=== PATIENT | female | born 1955 | race Caucasian/White ===

== ENCOUNTER 2017-06-21 11:12 | Emergency (ER) | payer MEDICARE ==
[~2017-06-21] VITALS: Ht 152.4 cm; Wt 62.0 kg
[~2017-06-21 11:12] MED LIST: ADVAIR DISK2 IN; BAYER LOW81 MG OR; CIPRO500 MG PO; CITALOPRAM20 MG PO; GARLIC OIL1000 M1 OR; HUMALOG; HUMALOG KW75 MG/25 K SC; LEVOTHROID25 MCG PO; MEDROL4 M1 PO; METFORMIN1000 MG PO; METOPROL TAR50 MG PO; NAPROSYN500 MG PO; NOVOLIN 70/30 SC; PRAVASTATIN10 MG PO; PROAIR HFA IN
[2017-06-21 12:19] LABS: HEMATOCRIT 50.2 % (37.0-47.0); MEAN CELL VOLUME 84.8 fL CALC (80.0-100.0); RED BLOOD COUNT 5.92 mill/uL (4.20-5.60)
[2017-06-21 12:20] LABS: MEAN CORPUSCULAR HGB CONC 31.9 g/L CALC (32.0-36.0); RED CELL DISTRI WIDTH 14.2 % (11.5-15.5)
[2017-06-21 12:21] LABS: NEUT# 6.27 thou/uL (2.00-7.15)
[2017-06-21 12:30] VITALS: BP 233/116
[2017-06-21 12:34] LABS: ALBUMIN 4.7 g/dL (3.2-5.0); ALKALINE PHOSPHATASE 119 u/l (38-126); ANION GAP 18 (6-22 (CALC)); BILIRUBIN, TOTAL 0.6 mg/dL (0.0-1.4); BUN 17 mg/dL (8-23); BUN/CREATININE RATIO 19 (12-20 (CALC)); CALCIUM 9.4 mg/dL (8.4-10.2); CARBON DIOXIDE 26 mmol/l (22-30); CHLORIDE 102 mmol/l (95-108); CREATININE 0.9 mg/dL (0.5-1.0); GFR > 60 ML/MIN (>=60 (CALC)); GFR FOR AFR.AMER. > 60 ML/MIN (>=60 (CALC)); GLUCOSE 346 mg/dL (82-115); POTASSIUM 4.4 mmol/l (3.5-5.1); SGOT/AST 27 u/l (9-36); SGPT/ALT 35 u/l (11-66); SODIUM 142 mmol/l (137-146); TOTAL PROTEIN 8.4 g/dL (6.3-8.2)
[2017-06-21 12:44] LABS: MYOGLOBIN 46 ng/mL (0 - 62)
== END 2017-06-21 12:30 | disposition short-term general hospital (02) ==
LOC: ED 11:12
PROVIDERS: Emergency Medicine
DX: I21.09 ST elevation (STEMI) myocardial infarction involving other coronary artery of anterior wall (principal); I25.810 Atherosclerosis of coronary artery bypass graft(s) without angina pectoris; I10 Essential (primary) hypertension; Z95.1 Presence of aortocoronary bypass graft; R06.02 Shortness of breath; R07.9 Chest pain, unspecified; M79.602 Pain in left arm

== ENCOUNTER 2018-10-03 10:39 | Inpatient (IN) | payer MEDICARE ==
[~2018-10-03] VITALS: Ht 152.4 cm; Wt 65.8 kg
[2018-10-03] VITALS (8 sets, daily range): BP systolic 140–175; BP diastolic 60–93
[~2018-10-03 10:39] MED LIST changes: +BAYER ASPIRIN E81 MG PO; -BAYER LOW81 MG OR; +LANTUS SOL100 UNIT/M SC; +LANTUS100 UNIT/M SC
[2018-10-03 11:29] LABS: HEMATOCRIT 49.3 % (37.0-47.0); HEMOGLOBIN 16.1 g/dl (12.0-16.0); IMMATURE GRANULOCYTES 1.9 % (0.0-5.0); MEAN CELL VOLUME 83.4 fL CALC (80.0-100.0); MEAN CORPUSCULAR HGB 27.2 pG CALC (26.0-32.0); MEAN CORPUSCULAR HGB CONC 32.7 g/L CALC (32.0-36.0); NEUT# 12.95 thou/uL (2.00-7.15); RED BLOOD COUNT 5.91 mill/uL (4.20-5.60); RED CELL DISTRI WIDTH 14.4 % (11.5-15.5)
[2018-10-03 12:45] LABS: ALBUMIN 4.6 g/dL (3.2-5.0); ALKALINE PHOSPHATASE 71 u/l (38-126); ANION GAP 20 (6-22 (CALC)); BUN 29 mg/dL (8-23); BUN/CREATININE RATIO 34 (12-20 (CALC)); CARBON DIOXIDE 21 mmol/l (22-30); CHLORIDE 100 mmol/l (95-108); CREATININE 0.9 mg/dL (0.5-1.0); GFR > 60 ML/MIN (>=60 (CALC)); GFR FOR AFR.AMER. > 60 ML/MIN (>=60 (CALC)); POTASSIUM 4.9 mmol/l (3.5-5.1); SODIUM 136 mmol/l (137-146); TOTAL PROTEIN 8.3 g/dL (6.3-8.2)
[2018-10-03 12:47] LABS: SGOT/AST 51 u/l (9-36)
[2018-10-03 13:01] LABS: URINE BILIRUBIN - DIPSTICK NEGATIVE (NEGATIVE); URINE BLOOD DIPSTICK TRACE-INTACT (NEGATIVE); URINE COLOR YELLOW; URINE GLUCOSE - DIPSTICK 250 mg/dL (NEGATIVE); URINE KETONE NEGATIVE (NEGATIVE); URINE LEUK ESTERASE NEGATIVE (Negative); URINE NITRITE - DIPSTICK NEGATIVE (Negative); URINE PH 5.5 (4.5-8.0); URINE PROTEIN - DIPSTICK NEGATIVE (NEG-TRACE); URINE SPECIFIC GRAVITY 1.015; URINE UROBILINOGEN - DIPSTICK 0.2 E.U./dL (0.2)
[2018-10-03 13:15] LABS: URINE CLARITY CLEAR
[2018-10-03] MEDS ORDERED: NOVOLIN N100 UNIT/2 SC ×2 (13:45→13:46)
[2018-10-03] MEDS ORDERED: NOVOLIN R100 UNIT/M SC ×2 (13:47)
[2018-10-03] MEDS ORDERED: LEVOTHYROXIN75 MCG PO (14:01)
[2018-10-03] MEDS ORDERED: SYMBICORT1 AE1 IN (14:05)
[2018-10-03] MEDS ORDERED: JARDIANCE10 MG PO (14:06)
[2018-10-03] MEDS ORDERED: METFORMIN500 MG PO (14:11)
[2018-10-03] MEDS ORDERED: ALBUTEROL SUL0.083 % IN (14:13)
[2018-10-03] MEDS ORDERED: IPRATROPIU0.5 MG/3 M IN (14:14)
[2018-10-04 03:10] VITALS: BP 140/60
[2018-10-04 07:32] VITALS: BP 146/63
[2018-10-04 10:42] LABS: HEMATOCRIT 47.6 % (37.0-47.0); HEMOGLOBIN 15.5 g/dl (12.0-16.0); MEAN CELL VOLUME 83.2 fL CALC (80.0-100.0); MEAN CORPUSCULAR HGB 27.1 pG CALC (26.0-32.0); MEAN CORPUSCULAR HGB CONC 32.6 g/L CALC (32.0-36.0); NEUT# 11.65 thou/uL (2.00-7.15); RED BLOOD COUNT 5.72 mill/uL (4.20-5.60); RED CELL DISTRI WIDTH 14.2 % (11.5-15.5)
[2018-10-04 10:55] LABS: CREATININE 1.2 mg/dL (0.5-1.0); POTASSIUM 4.4 mmol/l (3.5-5.1)
[2018-10-04 11:08] VITALS: BP 148/63
[2018-10-04 13:06] VITALS: BP 142/88
[2018-10-04 19:35] VITALS: BP 143/69
[2018-10-04 23:30] VITALS: BP 135/56
[2018-10-05] VITALS (7 sets, daily range): BP systolic 122–154; BP diastolic 55–73
[2018-10-05 06:11] LABS: HEMATOCRIT 44.2 % (37.0-47.0); HEMOGLOBIN 14.5 g/dl (12.0-16.0); IMMATURE GRANULOCYTES 5.1 % (0.0-5.0); MEAN CELL VOLUME 83.1 fL CALC (80.0-100.0); MEAN CORPUSCULAR HGB 27.3 pG CALC (26.0-32.0); MEAN CORPUSCULAR HGB CONC 32.8 g/L CALC (32.0-36.0); PLATELET COUNT 360 thou/uL (130-400); RED BLOOD COUNT 5.32 mill/uL (4.20-5.60); RED CELL DISTRI WIDTH 14.1 % (11.5-15.5)
[2018-10-05 06:23] LABS: ALKALINE PHOSPHATASE 68 u/l (38-126); ANION GAP 17 (6-22 (CALC)); BILIRUBIN, TOTAL 0.4 mg/dL (0.0-1.4); BUN 36 mg/dL (8-23); BUN/CREATININE RATIO 35 (12-20 (CALC)); CARBON DIOXIDE 24 mmol/l (22-30); CHLORIDE 99 mmol/l (95-108); GFR 56 ML/MIN (>=60 (CALC)); GFR FOR AFR.AMER. > 60 ML/MIN (>=60 (CALC)); POTASSIUM 5.1 mmol/l (3.5-5.1); SGOT/AST 13 u/l (9-36); SODIUM 135 mmol/l (137-146)
[2018-10-05 06:24] LABS: ALBUMIN 3.5 g/dL (3.2-5.0); MAGNESIUM 1.9 mg/dL (1.6-2.3); TOTAL PROTEIN 6.1 g/dL (6.3-8.2)
[2018-10-05 06:34] LABS: MANUAL DIFFERENTIAL YES
[2018-10-06 04:05] VITALS: BP 140/68
[2018-10-06 05:08] LABS: ANION GAP 16 (6-22 (CALC)); BUN 36 mg/dL (8-23); BUN/CREATININE RATIO 39 (12-20 (CALC)); CARBON DIOXIDE 21 mmol/l (22-30); CHLORIDE 101 mmol/l (95-108); CREATININE 0.9 mg/dL (0.5-1.0); GFR > 60 ML/MIN (>=60 (CALC)); GFR FOR AFR.AMER. > 60 ML/MIN (>=60 (CALC)); MAGNESIUM 1.8 mg/dL (1.6-2.3); POTASSIUM 5.1 mmol/l (3.5-5.1); SODIUM 133 mmol/l (137-146)
[2018-10-06 05:11] LABS: HEMATOCRIT 43.9 % (37.0-47.0); HEMOGLOBIN 14.5 g/dl (12.0-16.0); MEAN CELL VOLUME 83.8 fL CALC (80.0-100.0); MEAN CORPUSCULAR HGB 27.7 pG CALC (26.0-32.0); PLATELET COUNT 385 thou/uL (130-400); RED BLOOD COUNT 5.24 mill/uL (4.20-5.60); RED CELL DISTRI WIDTH 14.2 % (11.5-15.5)
[2018-10-06 05:35] LABS: IMMATURE GRANULOCYTES 6.3 % (0.0-5.0)
[2018-10-06 05:36] LABS: MANUAL DIFFERENTIAL YES
[2018-10-06 08:26] VITALS: BP 141/71
[2018-10-06 10:55] VITALS: BP 130/69
[2018-10-06 15:34] VITALS: BP 143/71; BP 153/68
[2018-10-06 20:05] VITALS: BP 143/68
[2018-10-07 04:00] VITALS: BP 149/77
[2018-10-07 07:39] VITALS: BP 130/84
[2018-10-07 10:31] VITALS: BP 130/84
[2018-10-07] MEDS ORDERED: LEVAQUIN500 MG PO (13:13)
[2018-10-07] MEDS ORDERED: ROBITUSSIN AC10 ML PO (13:15)
[2018-10-07] MEDS ORDERED: MEDDOSEPAK PO (13:15)
[2018-10-07] MEDS ORDERED: ZALEPLON5 MG PO (13:16)
== END 2018-10-07 13:56 | disposition home or self-care (01) | DRG 291 ==
LOC: MS2 10:39
PROVIDERS: Internal Medicine Nephrology; Nurse Practitioner Family; ADMIT Internal Medicine; ATTEND Internal Medicine
DX: I13.0 Hypertensive heart and chronic kidney disease with heart failure and stage 1 through stage 4 chronic kidney disease, or unspecified chronic kidney disease (principal); J96.20 Acute and chronic respiratory failure, unspecified whether with hypoxia or hypercapnia; I50.23 Acute on chronic systolic (congestive) heart failure; J44.1 Chronic obstructive pulmonary disease with (acute) exacerbation; E87.2 Acidosis; J45.901 Unspecified asthma with (acute) exacerbation; J98.11 Atelectasis; E11.22 Type 2 diabetes mellitus with diabetic chronic kidney disease; N18.3 Chronic kidney disease, stage 3 (moderate); I25.10 Atherosclerotic heart disease of native coronary artery without angina pectoris; E03.9 Hypothyroidism, unspecified; F32.9 Major depressive disorder, single episode, unspecified; F41.1 Generalized anxiety disorder; Z95.1 Presence of aortocoronary bypass graft; Z95.5 Presence of coronary angioplasty implant and graft; Z79.4 Long term (current) use of insulin; Z53.29 Procedure and treatment not carried out because of patient's decision for other reasons; Z91.11 Patient's noncompliance with dietary regimen; R06.02 Shortness of breath
CPT/HCPCS: J1650

== ENCOUNTER 2019-05-18 16:41 | Emergency (ER) | payer MEDICARE ==
[~2019-05-18] VITALS: Ht 152.4 cm; Wt 60.0 kg
[~2019-05-18 16:41] MED LIST changes: +ALBUTEROL SUL0.083 % IN; +IPRATROPIU0.5 MG/3 M IN; +JARDIANCE10 MG PO; +LEVAQUIN500 MG PO; +LEVOTHYROXIN75 MCG PO; +MEDDOSEPAK PO; +METFORMIN500 MG PO; +NOVOLIN N100 UNIT/2 SC; +NOVOLIN R100 UNIT/M SC; +ROBITUSSIN AC10 ML PO; +SYMBICORT1 AE1 IN; +ZALEPLON5 MG PO
[2019-05-18] MEDS ORDERED: TRESIBA100 UNIT/M SC (17:05)
[2019-05-18] MEDS ORDERED: KEFLEX500 M1 PO (17:14)
[2019-05-18 17:17] VITALS: BP 185/76
== END 2019-05-18 17:35 | disposition home or self-care (01) ==
LOC: ED 16:41
PROC: 2W3GX1Z Immobilization of Right Thumb using Splint (ICD-10-PCS; principal; 2019-05-18)
DX: S61.011A Laceration without foreign body of right thumb without damage to nail, initial encounter (principal); E11.9 Type 2 diabetes mellitus without complications; I10 Essential (primary) hypertension; W26.0XXA Contact with knife, initial encounter; Y93.G3 Activity, cooking and baking; Y92.009 Unspecified place in unspecified non-institutional (private) residence as the place of occurrence of the external cause; Z79.4 Long term (current) use of insulin

== ENCOUNTER 2019-09-19 | Emergency (ER) | payer MEDICARE ==
[~2019-09-19] MED LIST changes: +KEFLEX500 M1 PO; +TRESIBA100 UNIT/M SC
[2019-09-19] MEDS ORDERED: ZITHROMAX500 MG PO (19:05)
[2019-09-19] MEDS ORDERED: MEDROL DOSEPAK4 MG PO (19:06)
[2019-09-19 19:08] LABS: HEMATOCRIT 48.9 % (37.0-47.0); HEMOGLOBIN 16.5 g/dl (12.0-16.0); IMMATURE GRANULOCYTES 3.2 % (0.0-5.0); MEAN CELL VOLUME 82.9 fL CALC (80.0-100.0); MEAN CORPUSCULAR HGB CONC 33.7 g/L CALC (32.0-36.0); NEUT# 13.22 thou/uL (2.00-7.15); RED BLOOD COUNT 5.9 mill/uL (4.20-5.60); RED CELL DISTRI WIDTH 13.4 % (11.5-15.5)
[2019-09-19] MEDS ORDERED: VICTOZA18 MG/3 ML SC (19:13)
[2019-09-19] MEDS ORDERED: CHERATUSSIN PO (19:14)
[2019-09-19] MEDS ORDERED: PREDNISONE50 MG PO (19:14)
[2019-09-19] MEDS ORDERED: DOXYCYCL HYC100 M4 PO (19:14)
[2019-09-19 19:45] LABS: BUN 29 mg/dL (8-23); BUN/CREATININE RATIO 34 (12-20 (CALC)); CHLORIDE 103 mmol/l (95-108); CREATININE 0.9 mg/dL (0.5-1.0); GFR > 60 ML/MIN (>=60 (CALC)); GFR FOR AFR.AMER. > 60 ML/MIN (>=60 (CALC)); POTASSIUM 3.9 mmol/l (3.5-5.1); SODIUM 136 mmol/l (137-146)
[2019-09-19 19:48] LABS: ANION GAP 21 (6-22 (CALC)); CARBON DIOXIDE 16 mmol/l (22-30)
[2020-02-10] MEDS ORDERED: ZETIA10 MG PO (13:18)
[2020-02-10] MEDS ORDERED: METOPROL TAR25 MG PO (13:18)
== END 2019-09-19 20:00 | disposition home or self-care (01) ==
PROVIDERS: Family Medicine
DX: J44.1 Chronic obstructive pulmonary disease with (acute) exacerbation (principal); J45.901 Unspecified asthma with (acute) exacerbation; E11.9 Type 2 diabetes mellitus without complications; I10 Essential (primary) hypertension; Z95.1 Presence of aortocoronary bypass graft; Z95.5 Presence of coronary angioplasty implant and graft; Z79.4 Long term (current) use of insulin

== ENCOUNTER 2019-12-03 17:28 | Inpatient (IN) | payer MEDICARE ==
[~2019-12-03] VITALS: Ht 152.4 cm; Wt 62.6 kg
[~2019-12-03 17:28] MED LIST changes: +CHERATUSSIN PO; +DOXYCYCL HYC100 M4 PO; +MEDROL DOSEPAK4 MG PO; +PREDNISONE50 MG PO; +VICTOZA18 MG/3 ML SC; +ZITHROMAX500 MG PO
[2019-12-03 17:50] VITALS: BP 175/91
--- NOTE | 2019-12-03 17:50 | NUR ---
PT ARRIVED TO MED/SURG ROOM 281 IN STABLE CONDITION VIA WHEELCHAIR ACCOMPANIED BY REGISTRATION STAFF MEMBER;PT AMBULATED TO BEDSIDE WITH A STEADY GAIT;A&O X3,ORIENTED TO ROOM AND CALL LIGHT SYSTEM;PT REPORTS COUGH SINCE AUGUST THAT HAS BEEN UNRESOLVED;PT DENIES ANY CURRENT PAIN OR DISCOMFORTS,PAIN SCALE AND REPORTING EDUCATED;RESPIRATIONS EVEN AND UNLABORED ON RA,CLEAR/DIMINISHED LUNG SOUNDS NOTED;NON-PRODUCTIVE COUGH AT TIMES;PT REPORTS COUGH CAN BE PRODUCTIVE,WHITE/THICJ CONSISTENCY;ABDOMEN SOFT ON PALPATION AND ACTIVE IN ALL 4 QUADRANTS,LAST BM 12/03/19;STRONG PEDAL PULSES;SKIN INTACT;TELE MONITORING PLACED ON PT AT THIS TIME;#22G STARTED TO RIGHT HAND ON 1ST ATTEMPT BY THIS WRITTER,LAB WORK OBTAINED AT THIS TIME;COVID NASAL SWAB ALSO OBTAINED PER ORDER;ACCUCHECK OBTAINED RESULTING IN 124;FALL AND ALLERGY BAND APPLIED;PT DENIES ANY ADDITIONAL NEEDS AT THIS TIME AND IS ENCOURAGED TO CALL FOR ASSISTANCE IF NEEDED;FALL PRECAUTIONS IN PLACE WITH BED IN THE LOWEST POSITION AND CALL LIGHT IN REACH;WILL CONTINUE TO MONITOR
--- NOTE | 2019-12-03 18:20 | NUR ---
XRAY AT BEDSIDE
[2019-12-03 18:32] LABS: HEMATOCRIT 47.9 % (37.0-47.0); HEMOGLOBIN 16.1 g/dl (12.0-16.0); MEAN CORPUSCULAR HGB 27.9 pG CALC (26.0-32.0); MEAN CORPUSCULAR HGB CONC 33.6 g/dL CAL (32.0-36.0); NEUT# 7.45 thou/uL (2.00-7.15); RED BLOOD COUNT 5.77 mill/uL (4.20-5.60); RED CELL DISTRI WIDTH 13.4 % (11.5-15.5)
[2019-12-03 18:50] LABS: ALBUMIN 4.1 g/dL (3.2-5.0); ALKALINE PHOSPHATASE 90 u/l (38-126); BUN 10 mg/dL (8-23); BUN/CREATININE RATIO 13 (12-20 (CALC)); CHLORIDE 105 mmol/l (95-108); CREATININE 0.7 mg/dL (0.5-1.0); GFR > 60 ML/MIN (>=60 (CALC)); GFR FOR AFR.AMER. > 60 ML/MIN (>=60 (CALC)); POTASSIUM 4.1 mmol/l (3.5-5.1); SGOT/AST 22 u/l (9-36); SODIUM 136 mmol/l (137-146)
[2019-12-03 18:53] LABS: ANION GAP 12 (6-22 (CALC)); BILIRUBIN, TOTAL 0.6 mg/dL (0.0-1.4); CARBON DIOXIDE 23 mmol/l (22-30)
[2019-12-03 19:06] VITALS: BP 175/87
--- NOTE | 2019-12-03 19:11 | NUR ---
SPOKE WITH REGARDING CLARIFICATION ON ORDERED MEDICATIONS WITH PHARMACY. PER MD HE WILL DO IT IN 1 HOUR WHEN HE HAS A COMPUTER.
--- NOTE | 2019-12-03 21:00 | NUR ---
PHYSICAL ASSEMENT COMPLETE. VS TAKEN BY MANAGER R D ASSESSED. PLAN OF CARE REVIEWED W/ PT, DENIES QUESTIONS, VERBALIZES UNDERSTANDING. DENIES NEEDS AT THIS TIME. CALL RICO WITHIN REACH, AGREES TO CALL PRN.BED LOCKED IN LOW POSITION W/ BEDRAILS UP X2, ITEMS WITHIN REACH.
[2019-12-03 23:42] VITALS: BP 148/73
--- NOTE | 2019-12-04 01:00 | NUR ---
VS TAKEN BY ORGAN PIPE MAKER METAL ASSESSED. PT APPEARS TO BE SLEEPING COMFORTABLY. NO APPARENT DISTRESS. RESPIRATIONS REGULAR AND UNLABORED.CALL RICO REMAINS WITHIN REACH. BED REMAINS LOCKED IN LOW POSITION W/ BEDRAILS UP X2, ITEMS REMAIN WITHIN REACH.
[2019-12-04 03:31] VITALS: BP 150/80
--- NOTE | 2019-12-04 05:24 | NUR ---
ASSESMENT UNCHANGED, VSS. PT APPEARS TO BE SLEEPING COMFORTABLY, NO APPARENT DISTRESS, RESPIRATIONS REGULAR AND UNLABORED. BED REMAINS LOCKED IN LOW POSITION W/ BEDRAILS UP X2 AND ITEMS WITHIN REACH. CALL RICO REMAINS WITHIN REACH.
[2019-12-04 06:12] LABS: ALBUMIN 3.9 g/dL (3.2-5.0); ALKALINE PHOSPHATASE 97 u/l (38-126); ANION GAP 15 (6-22 (CALC)); BILIRUBIN, TOTAL 0.7 mg/dL (0.0-1.4); BUN 13 mg/dL (8-23); BUN/CREATININE RATIO 16 (12-20 (CALC)); CARBON DIOXIDE 24 mmol/l (22-30); CHLORIDE 100 mmol/l (95-108); CREATININE 0.8 mg/dL (0.5-1.0); GFR > 60 ML/MIN (>=60 (CALC)); GFR FOR AFR.AMER. > 60 ML/MIN (>=60 (CALC)); POTASSIUM 4.7 mmol/l (3.5-5.1); SGOT/AST 19 u/l (9-36); SODIUM 135 mmol/l (137-146); TOTAL PROTEIN 6.7 g/dL (6.3-8.2)
--- NOTE | 2019-12-04 07:00 | NUR ---
SHIFT CHANGE REPORT, PT AWAKE ALERT AND ORIENTED SITTING UP IN BED DOING NEEDLE WORK, REPORTS SHE FEELS MUCH BETTER TODAY BUT STILL COUGHING UP THICK YELLOW SPUTUM, TELE MONITOR IN PLACE, ALL NEEDS ADDRESED, CALL RICO IN REACH.
[2019-12-04 08:23] VITALS: BP 157/87
[2019-12-04] MEDS ORDERED: VICTOZA18 MG/3 ML SC (10:43)
[2019-12-04] MEDS ORDERED: AMITRIPTYLIN25 MG PO (10:44)
[2019-12-04] MEDS ORDERED: TRESIBA FL200 UNIT/M SC (10:47)
[2019-12-04 11:10] VITALS: BP 140/70
--- NOTE | 2019-12-04 12:00 | NUR ---
RESTING IN BED, C/O INCREASED COUGHING, CONCERN ADDRESSED.
--- NOTE | 2019-12-04 12:00 | NUR ---
MEDICAL TEAM ROUNDED AND DISCUSSED PLAN OF CARE, PT STATED UNDERSTANDING, ALL NEEDS ADDRESSED.
[2019-12-04 15:40] VITALS: BP 158/75
[2019-12-04 19:10] VITALS: BP 161/81
--- NOTE | 2019-12-04 19:45 | NUR ---
PHYSICAL ASSEMENT COMPLETE. VS TAKEN BY SOCIAL WORK CASE MANAGER @ 1910 ASSESSED. PLAN OF CARE REVIEWED W/ PT, PT VERBALIZES UNDERSTANDING AND DENIES QUESTIONS @ THIS TIME. PT DENIES NEEDS @ THIS TIME. CALL RICO WITHIN REACH, AGREES TO CALL PRN. BED LOCKED IN LOW POSITION W/ BEDRAILS UPX2. ITEMS WITHIN REACH.
--- NOTE | 2019-12-04 21:00 | NUR ---
PT C/O L SIDED CHEST AND SHOULDER PAIN. EKG DONE AND REVIEWED BY PHYSICIAN. TROPONIN DONE AND RESULTS NEGATIVE. PT PUT ON 02 @ 2L VIA KS. S.
--- NOTE | 2019-12-04 22:00 | NUR ---
REPORTED C/O L SHOULDER AND CHEST PAIN TO DR. PEREZ, ASSESMENT, VS, EKG AND TROPONIN RESULTS, CRITICAL GLUCOSE VALUE. ORDERS RECEIVED AND READ BACK. SEE CHART AND OCT.
[2019-12-05 00:05] VITALS: BP 156/68
--- NOTE | 2019-12-05 00:15 | NUR ---
VS TAKEN @ 0005 BY CONTACT LENS FITTER ASSESSED.
--- NOTE | 2019-12-05 01:48 | NUR ---
PT APPEARS TO BE SLEEPING COMFORTABLY, NO APPARENT DISTRESS. RESPIRATIONS REGULAR AND UNLABORED. CALL RICO REMAINS WITHIN REACH. BED REMAINS LOCKED IN LOW POSITION W/ BEDRAILS UP X2. ITEMS REMAIN WITHIN REACH.
[2019-12-05 05:00] VITALS: BP 131/62
--- NOTE | 2019-12-05 05:10 | NUR ---
VS TAKEN BY FRANCISCO JAVIER @ [id number].
--- NOTE | 2019-12-05 06:17 | NUR ---
PT APPEARS RESTING IN BED COMFORTABLY. DENIES NEEDS OR COMPLAINT. NO APPARENT DISTRESS RESPIRATIONS REGULAR AND UNLABORED. CALL RICO REMAINS WITHIN REACH. AGREES TO CALL PRN. BED REMAINS LOCKED IN LOW POSITION W/ BEDRAILS UP X2. ITEMS REMAIN WITHIN REACH.
[2019-12-05 06:51] LABS: URINE BILIRUBIN - DIPSTICK NEGATIVE (NEGATIVE); URINE BLOOD DIPSTICK MODERATE (NEGATIVE); URINE CLARITY CLEAR; URINE COLOR YELLOW; URINE GLUCOSE - DIPSTICK >=1000 mg/dL (NEGATIVE); URINE KETONE NEGATIVE (NEGATIVE); URINE LEUK ESTERASE NEGATIVE (Negative); URINE NITRITE - DIPSTICK NEGATIVE (Negative); URINE UROBILINOGEN - DIPSTICK 0.2 E.U./dL (0.2)
[2019-12-05 06:59] LABS: URINE PROTEIN - DIPSTICK NEGATIVE (NEG-TRACE)
[2019-12-05 07:02] LABS: URINE BACTERIA FEW hpf; URINE EPITHELIAL CELLS MODERATE EPI/hpf (0-FEW)
--- NOTE | 2019-12-05 07:20 | NUR ---
REPORT RECEIVED FROM SELAM DURAND. PT SITTING UP ON EDGE OF BED; ALERT AND ORIENTED. DENIES PAIN. RESPIRATIONS EVEN AND UNLABORED ON OXYGEN 2L VIA NC. TELE ON. PT ON AIRBORNE/CONTACT PRECAUTIONS PENDING COVID TEST RESULTS. PLAN OF CARE REVIEWED. PT ENCOURAGED TO VERBALIZE CONCERNS. STATES UNDERSTANDING. SAFETY MEASURES IN PLACE. CALL LIGHT WITHIN REACH.
[2019-12-05 08:00] VITALS: BP 153/74
[2019-12-05 10:15] VITALS: BP 146/63
--- NOTE | 2019-12-05 12:24 | NUR ---
DR. CASAS AT BEDSIDE. ROBITUSSIN GIVEN FOR COUGH.
--- NOTE | 2019-12-05 13:30 | NUR ---
PT MOVED FROM ROOM 281 TO ROOM 269. REQUESTING MORE COUGH MEDICATION. DENIES PAIN. IV SITE APPEARS HEALTHY AND FLUSHES. INDEPENDENT IN ROOM. CALL LIGHT WITHIN REACH.
[2019-12-05 16:00] VITALS: BP 147/62
--- NOTE | 2019-12-05 19:01 | NUR ---
ROBITUSSIN GIVEN FOR LOOSE PRODUCTIVE COUGH; LIGHT YELLOW THICK SPUTUM.
--- NOTE | 2019-12-05 19:15 | NUR ---
REPORT FROM FRANCIA DOSS. PT SITTING UP IN BED WATCHING TV. NO APPARENT DISTRESS NOTED. PT STATES COUGH MEDICINE NOT EFFECTIVE AND C/O STRESS INCONTINENCE EVERY TIME SHE COUGHS. PT CLAIMS SPUTUM YELLOW IN COLOR AND THICK. DISCUSSED POC. PT VERBALIZED UNDERSTANDING. METAL ROOM DENTAL TECHNICIAN IN PLACE. IV SITE APPEARS HEALTHY. CALL LIGHT WITHIN REACH. WILL CONTINUE TO MONITOR.
[2019-12-05 19:21] VITALS: BP 149/66
--- NOTE | 2019-12-05 21:01 | NUR ---
IV site discontinued due to site leaking, cath intact. No edema , no redness, voices no discomfort. New IV started. IV access obtained with #22 AutoGuard at Left Forearm with 1 IV stick attempts. Flushes easily with good blood return. Pt tolerated well.
--- NOTE | 2019-12-06 01:13 | NUR ---
PT RESTING IN BED WITH EYES CLOSED. NO APPARENT DISTRESS NOTED. CALL LIGHT WITHIN REACH. WILL CONTINUE TO MONITOR.
[2019-12-06 05:04] VITALS: BP 145/68
[2019-12-06 05:20] LABS: HEMATOCRIT 43.3 % (37.0-47.0); HEMOGLOBIN 14.4 g/dl (12.0-16.0); MEAN CELL VOLUME 85.7 fL CALC (80.0-100.0); MEAN CORPUSCULAR HGB 28.5 pG CALC (26.0-32.0); MEAN CORPUSCULAR HGB CONC 33.3 g/dL CAL (32.0-36.0); RED BLOOD COUNT 5.05 mill/uL (4.20-5.60); RED CELL DISTRI WIDTH 13.4 % (11.5-15.5)
[2019-12-06 05:22] LABS: ANION GAP 13 (6-22 (CALC)); BUN 20 mg/dL (8-23); BUN/CREATININE RATIO 24 (12-20 (CALC)); CARBON DIOXIDE 23 mmol/l (22-30); CHLORIDE 101 mmol/l (95-108); CREATININE 0.8 mg/dL (0.5-1.0); GFR > 60 ML/MIN (>=60 (CALC)); GFR FOR AFR.AMER. > 60 ML/MIN (>=60 (CALC)); POTASSIUM 4.9 mmol/l (3.5-5.1); SODIUM 132 mmol/l (137-146)
--- NOTE | 2019-12-06 05:25 | NUR ---
PT RESTING IN BED WITH EYES CLOSED. NO APPARENT DISTRESS NOTED. CALL LIGHT WITHIN REACH. WILL CONTINUE TO MONITOR.
--- NOTE | 2019-12-06 07:20 | NUR ---
PT RESTING IN BED, NO SIGNS OF DISTRESS NOTED, RESP EVEN AND UNLABORED. PT ALERT AND ORIENTED X3, DISCUSSED POC, PT DECLINED AM NOVOLOG PT TO TAKE HOME SCHEDULED INSULIN, ASSESSMENT COMPLETED, CALL LIGHT IN REACH,CONTINUE TO MONITOR.
[2019-12-06 07:21] VITALS: BP 119/64
[2019-12-06 10:59] VITALS: BP 145/63
--- NOTE | 2019-12-06 11:32 | NUR ---
PT RESTING IN BED ON CELLPHONE, DISCUSSED IS AND VERBAL INSTRUCTIONS PROVIDED, PT STATES SHE IS FAMILIAR WITH ITS USE. ASKING WHEN SHE WILL BE DISCHARGED, INFORMED PT AWAITING PROVIDER ORDERS. CALL LIGHT IN REACH,CONTINUE TO MONITOR.
[2019-12-06] MEDS ORDERED: AMOXICILLIN500 MG PO (12:05)
[2019-12-06] MEDS ORDERED: MEDDOSEPAK PO (12:05)
[2019-12-06] MEDS ORDERED: CLARITIN10 M2 PO (12:06)
[2019-12-06] MEDS ORDERED: MUCINEX600 MG PO (12:06)
--- NOTE | 2019-12-06 12:31 | NUR ---
DISCUSSED DISCHARGE INSTRUCTIONS, PT VERBALIZED UNDERSTANDING. IV REMOVED, PT TOLERATED WELL. TELE REMOVED AT THIS TIME. PT GETTING DRESSED.
--- NOTE | 2019-12-06 12:36 | NUR ---
Discharge instructions given. Patient verbalizes understanding of same. Discharged in stable condition via Wheelchair to Home with family. All belongings sent with pt.
--- NOTE | 2019-12-12 09:44 | NUR ---
Notified patienT of Covid results (Negative.) Advised to follow up with PCP or return to ED for urgent issues. Advised to continue with all Covid prevention measures. Patient verbalized understanding.
[2020-02-10] MEDS ORDERED: METOPROL TAR25 MG PO (13:18)
[2020-02-10] MEDS ORDERED: ZETIA10 MG PO (13:18)
== END 2019-12-06 12:36 | disposition home or self-care (01) | DRG 192 ==
LOC: MS2 17:28
PROVIDERS: ADMIT Internal Medicine; ATTEND Internal Medicine
DX: J44.1 Chronic obstructive pulmonary disease with (acute) exacerbation (principal); I10 Essential (primary) hypertension; I25.10 Atherosclerotic heart disease of native coronary artery without angina pectoris; E11.9 Type 2 diabetes mellitus without complications; E78.5 Hyperlipidemia, unspecified; E03.9 Hypothyroidism, unspecified; I25.2 Old myocardial infarction; Z95.1 Presence of aortocoronary bypass graft; Z95.5 Presence of coronary angioplasty implant and graft; Z79.4 Long term (current) use of insulin; Z20.828 Contact with and (suspected) exposure to other viral communicable diseases
CPT/HCPCS: J0692

== ENCOUNTER 2020-02-17 08:31 | Day surgery (SDC) | payer MEDICARE ==
[2020-02-17] VITALS (7 sets, daily range): BP systolic 117–125; BP diastolic 50–84
[~2020-02-17] VITALS: Ht 152.4 cm; Wt 67.8 kg
[~2020-02-17 08:31] MED LIST changes: +AMITRIPTYLIN25 MG PO; +AMOXICILLIN500 MG PO; +CLARITIN10 M2 PO; +METOPROL TAR25 MG PO; +MUCINEX600 MG PO; +TRESIBA FL200 UNIT/M SC; +ZETIA10 MG PO
[2020-02-17 09:18] LABS: ALKALINE PHOSPHATASE 96 u/l (38-126); ANION GAP 7 (6-22 (CALC)); BILIRUBIN, TOTAL 0.5 mg/dL (0.0-1.4); BUN 11 mg/dL (8-23); BUN/CREATININE RATIO 13 (12-20 (CALC)); CARBON DIOXIDE 28 mmol/l (22-30); CHLORIDE 103 mmol/l (95-108); CREATININE 0.9 mg/dL (0.5-1.0); GFR > 60 ML/MIN (>=60 (CALC)); GFR FOR AFR.AMER. > 60 ML/MIN (>=60 (CALC)); SGOT/AST 23 u/l (9-36); SODIUM 134 mmol/l (137-146)
[2020-02-17 09:30] LABS: POTASSIUM 3.7 mmol/l (3.5-5.1)
[2020-02-17] MEDS ORDERED: PERCOCET 5/325M1 TAB PO (14:16)
--- NOTE | 2020-02-17 16:07 | NUR ---
PT ARRIVED TO MED/SURG ROOM 260 IN STABLE CONDITION VIA STRETCHER ACCOMPANIED BY X2 OR NURSES;PT TRANSFERRED TO HOSPITAL BED WITH X4 PERSON ASSIST;BEDSIDE REPORT RECEIVED FROM SELAM CARTER;WT AND VS OBTAINED BY FRANCISCO JAVIER DAVENPORT;PT DROWSY BUT A&O X4, ORIENTED TO ROOM AND CALL LIGHT SYSTEM;PT IS POST OP LAP HERNIA REPAIR WITH MESS TO ABDOMEN,X7 INCISIONS TO ABDOMEN NOTED WITH DERMABOND INTACT;PT REPORTS PAIN TO ABDOMEN RATING 0/10 AT THIS TIME, PT REPORTS "PAIN INCREASES WITH MOVEMENT";PAIN SCALE AND REPORTING EDUCATED;RESPIRATIONS EVEN AND UNLABORED ON O2 @ 2L VIA NC, IT SHOULD BE NOTED THAT PT IS NOT HOME DEPENDENT;STRONG PEDAL PULSES,SCD'S APPLIED;#20G TO RAC INFUSING NS WITH EASE PER ORDER,SITE APPEARS HEALTHY;ACCUCHECK OF 164 OBTAINED;HOME INSULIN X2 SENT TO PHARMACY FOR VERIFICATION;FALL AND ALLERGY BANDS APPLIED TO LEFT ARM;PT DENIES ANY ADDITIONAL NEEDS AT THIS TIME AND IS ENCOURAGED TO CALL FOR ASSISTANCE IF NEEDED;FALL PRECAUTIONS IN PLACE WITH BED IN THE LOWEST POSITION AND BED ALARM ON FOR SAFETY;CALL LIGHT IN REACH;WILL CONTINUE TO MONITOR
--- NOTE | 2020-02-17 16:30 | NUR ---
PT INSTRUCTED TO HAVE SPOUSE BRING IN HOME ZETIA FOR PHARMACY VERIFICATION AND USAGE, PT VERBALIZES UNDERSTANDING.
--- NOTE | 2020-02-17 17:53 | NUR ---
PT OOB RESTING ON BEDSIDE COMMODE, PT VOIDED 100CC OF CLEAR/YELLOW URINE WITHOUT DIFFICULTY AND WAS ASSISTED TO BED PER REQUEST;PT REPORTS ABDOMINAL PAIN WITH MOVEMENT OF 10/10 ON THE PAIN SCALE AND REQUESTS PAIN MEDICATION AND NAUSEA MEDICATION, PT TO BE MEDICATED WITH SCHEDULED TORADOL 15MG AND PRN ZOFRAN 4MG IVP PER ORDER;DINNER TRAY SET UP PROVIDED; ACCUCHECK 164, PT REFUSES SLIDING SCALE NOVOLOG ORDERED;RESPIRATIONS EVEN AND UNLABORED ON O2 @ 2L VIA NC;IV FLUIDS INFUSING WITH EASE;PT DENIES ANY ADDITIONAL NEEDS AT THIS TIME AND IS ENCOURAGED TO CALL FOR ASSISTANCE IF NEEDED;FALL PRECAUTIONS IN PLACE WITH CALL LIGHT IN REACH;WILL CONTINUE TO MONITOR
--- NOTE | 2020-02-17 19:14 | NUR ---
PT REQUESTING SOMETHING MORE FOR PAIN REPORTING THAT TORADOL 15MG IS NOT EFFECTIVE.VOICEMAIL LEFT FOR AT THIS TIME;AWAITING CALL BACK.WILL CONTINUE TO MONITOR
--- NOTE | 2020-02-17 20:23 | NUR ---
PATIENT RESTING IN BED. SHIFT ASSESSMENT COMPLETE. NO SIGNS OF DISTRESS. ABLE TO MAKE NEEDS KNOWN. RESPIRATIONS EVEN AND UNLABORED. IVF INFUSING, IV PATENT. WAITING CALL BACK FROM MD FOR DIFFERENT PAIN MEDCIATION. CALL LIGHT IN REACH. WILL CONTINUE TO MONITOR.
[2020-02-18 00:20] VITALS: BP 131/74
--- NOTE | 2020-02-18 00:45 | NUR ---
PATIENT RESTING IN BED. NO DISTRESS NOTED. PATIENT C/O PAIN IN ABD AFTER MEDICATED WITH PAIN MEDICINE APPROX. 45 MINUTES AGO. MEDICATED PER SCHEDULED PAIN MEDICATION. WILL CONTINUE TO MONITOR.
[2020-02-18 03:00] VITALS: BP 120/57
--- NOTE | 2020-02-18 04:04 | NUR ---
PATIENT SLEEPING, EYES CLOSED. NO DISTRESS NOTED. CALL LIGHT IN REACH. CONTINUE TO MONITOR PAIN CONTROL.
--- NOTE | 2020-02-18 07:05 | NUR ---
REPORT RECEIVED FROM MICHAELRN;PT RESTING IN SEMI FOWLERS POSITION;INTRODUCED SELF TO PT AND POC DISCUSSED;RESPIRATIONS EVEN AND UNLABORED ON RA;PT DENIES ANY CURRENT PAIN OR NEEDS;IV FLUIDS INFUSING WITH EASE;ACCUCHECK 131, NO COVERAGE NEEDED;PT ENCOURAGED TO CALL FOR ASSISTANCE IF NEEDED;FALL PRECAUTIONS IN PLACE WITH BED IN THE LOWEST POSITION AND CALL LIGHT IN REACH;WILL CONTINUE TO MONITOR
[2020-02-18 09:19] VITALS: BP 125/53
--- NOTE | 2020-02-18 09:20 | NUR ---
PT RESTING IN SEMI FOWLERS POSITION,A&O X3;VS OBTAINED AND ASSESSMENT COMPLETED;PT IS POST OP DAY #1 LAP ABDOMINAL HERNIA REPAIR WITH MESS;PT REPORTS ABDOMINAL PAIN RATING 8/10 ON THE PAIN SCALE AND REQUESTS PAIN MEDICATION,PT TO BE MEDICATED WITH PERCOCET 5/325MG PO AT THIS TIME;RESPIRATIONS EVEN AND UNLABORED ON RA,CLEAR LUNG SOUNDS;PT EDUCATED ON I.S. USAGE AND ENCOURAGED TO USE 10X PER HOUR,PT VERBALIZES UNDERSTANDING;ABDOMEN DISTENDED/SOFT ON PALPATION AND HYPOACTIVE IN ALL 4 QUADRANTS;X7 ABDOMINAL INCISIONS NOTED WITH DERMABOND INTACT;STRONG PEDAL PULSES;#20G TO RAC INFUSING NS @ 80ML/HR,SITE APPEARS HEALTHY;ACCUCHECK 231;PT DENIES ANY ADDITIONAL NEEDS AT THIS TIME AND IS ENCOURAGED TO CALL FOR ASSISTANCE IF NEEDED;FALL PRECAUTIONS REMAIN IN PLACE WITH CALL LIGHT IN REACH;WILL CONTINUE TO MONITOR
--- NOTE | 2020-02-18 11:46 | NUR ---
PT RESTING AT BEDSIDE EATING LUNCH;RESPIRATIONS EVEN AND UNLABORED ON RA;PT REPORTS ABDOMINAL PAIN RATING 6/10 ON THE PAIN SCALE AND IS MEDICATED WITH SCHEDULED TORADOL PER ORDER;IV SITE PATENT;PT DENIES ANY ADDITIONAL NEEDS AND IS ENCOURAGED TO CALL FOR ASSISTANCE IF NEEDED;CALL LIGHT IN REACH;WILL CONTINUE TO MONITOR
--- NOTE | 2020-02-18 14:55 | NUR ---
PT RESTING IN SEMI FOWLERS POSITION;RESPIRATIONS REMAIN EVEN AND UNLABORED ON RA;PT REPORTS ABDOMINAL PAIN AND REQUESTS PAIN MEDICATION,PT TO BE MEDICATED WITH PRN PERCOCET 5/325MG PO;PT REQUESTS IV SITE TO BE CHANGED, CURRENT #20G TO RAC REMOVED WITH CATHETER INTACT;NEW #22G STARTED TO LEFT HAND IN 1ST ATTEMPT BY THIS WRITTER AND NS RE-STARTED PER ORDER;PT DENIES ANY ADDITIONAL NEEDS AT THIS TIME AND IS ENCOURAGED TO CALL FOR ASSISTANCE IF NEEDED;CALL LIGHT IN REACH;WILL CONTINUE TO MONITOR
[2020-02-18 16:00] VITALS: BP 138/63
--- NOTE | 2020-02-18 17:32 | NUR ---
PT AMBULATING THE [address] WAY WITH A STEADY GAIT.
[2020-02-18 18:48] VITALS: BP 105/57
--- NOTE | 2020-02-18 19:02 | NUR ---
REPORT FROM TAYO CUELLAR. PT IN BED TALKING ON CELL PHONE. NO APPARENT DISTRESS NOTED. PT DENIES ANY PAIN OR DISCOMFORT. IV SITE APPEARS HEALTHY WITH IVF INFUSING. DISCUSSED POC. PT VERBALIZED UNDERSTANDING. PT DENIES ANY WANTS OR NEEDS AT TIMES. CALL LIGHT WITHIN REACH. WILL CONTINUE TO MONITOR.
--- NOTE | 2020-02-18 21:16 | NUR ---
PT MEDICATED WITH PM MEDICATIONS. PT CONTINUES TO REFUSE NOVOLOG AND INHALER. EDUCATION PROVIDED. PT C/O ABD PAIN 5-10. PRN PERCOCET ADMINISTERED. FRESH ICE WATER PROVIDED. PT DENIES ANY OTHER WANTS OR NEEDS. CALL LIGHT WITHIN REACH. WILL CONTINUE TO MONITOR.
[2020-02-18 23:52] VITALS: BP 135/65
--- NOTE | 2020-02-19 00:10 | NUR ---
PT RESTING IN BED. NO APPARENT DISTRESS NOTED. PT DENIES ANY PAIN OR DISCOMFORT. CALL LIGHT WITHIN REACH. WILL CONTINUE TO MONITOR.
[2020-02-19 03:57] VITALS: BP 126/72
--- NOTE | 2020-02-19 04:14 | NUR ---
PT UP TO VOID. BLOOD TINGED OUTPUT NOTED. PT DENIES ANY PAIN WITH URINATION. PT C/O BURNING PAIN IN LOWER ABD QUADRANTS 5-10. NO APPARENT DISTRESS NOTED. PT MEDICATED FOR PAIN AT THIS TIME. VSS. WILL NOTIFY PHYSICIAN OF FINDINGS AND CONTINUE TO MONITOR.
--- NOTE | 2020-02-19 05:41 | NUR ---
ORDERS RECEIVED FOR DR. CLEARY TO OBTAIN UA.
--- NOTE | 2020-02-19 07:00 | NUR ---
REPORT RECEIVED FROM ALISA VARMA;PT APPEARS TO BE SLEEPING IN SEMI FOWLERS POSITION;NO S/S OF DISTRESS NOTED;RESPIRATIONS EVEN AND UNLABORED ON RA;IV FLUIDS INFUSING WITH EASE TO LEFT HAND;ALL SAFETY PRECAUTIONS IN PLACE WITH BED IN THE LOWEST POSITION AND CALL LIGHT IN REACH;WILL CONTINUE TO MONITOR
[2020-02-19 07:49] LABS: URINE BILIRUBIN - DIPSTICK NEGATIVE (NEGATIVE); URINE BLOOD DIPSTICK LARGE (NEGATIVE); URINE GLUCOSE - DIPSTICK 100 mg/dL (NEGATIVE); URINE KETONE NEGATIVE (NEGATIVE); URINE LEUK ESTERASE NEGATIVE (NEGATIVE); URINE NITRITE - DIPSTICK NEGATIVE (Negative); URINE PH 5.5 (4.5-8.0); URINE PROTEIN - DIPSTICK 30 mg/dL (NEG-TRACE); URINE SPECIFIC GRAVITY 1.015; URINE UROBILINOGEN - DIPSTICK 0.2 E.U./dL (0.2)
[2020-02-19 08:00] LABS: URINE COLOR DK. YELLOW
[2020-02-19 08:01] LABS: URINE EPITHELIAL CELLS MODERATE EPI/hpf (0-FEW); URINE RBC 25-50 RBC/hpf (0-5)
[2020-02-19 08:39] VITALS: BP 153/69
--- NOTE | 2020-02-19 08:40 | NUR ---
PT RESTING IN SEMI FOWLERS POSITION,A&O X3;VS OBTAINED AND ASSESSMENT COMPLETED;PT DENIES ANY CURRENT PAIN OR DISCOMFORTS,PAIN SCALE AND REPORTING EDUCATED;PT IS POST OP DAY #2 LAP ABDOMINAL HERNIA REPAIR WITH MESS PLACEMENT;RESPIRATIONS EVEN AND UNLABORED ON RA,CLEAR LUNG SOUNDS;I.S. AT BEDSIDE AND PT INSTRCUTED ON USE AND VERBALIZES UNDERSTANDING, ENCOURAGED USE 10X PER HOUR;ABDOMEN DISTENDED/SOFT ON PALPATION AND ACTIVE IN ALL 4 QUADRANTS;X7 INCISIONS TO ABDOMEN WELL APPROX WITH DERMABOND IN PLACE;STRONG PEDAL PULSES;#22G TO LEFT HAND INFUSING NS @ 80ML/HR,SITE APPEARS HEALTHY;ACCUCHECK 160;PT DENIES ANY ADDITIONAL NEEDS AT THIS TIME AND IS ENCOURAGED TO CALL FOR ASSISTANCE IF NEEDED;FALL PRECAUTIONS IN PLACE WITH CALL LIGHT IN REACH;WILL CONTINUE TO MONITOR
[2020-02-19 08:44] VITALS: BP 153/69
--- NOTE | 2020-02-19 11:05 | NUR ---
AT BEDSIDE DISCUSSING POC WITH PT INCLUDING PLANS TO D/C HOME,PT VERBALIZES UNDERSTANDING.
--- NOTE | 2020-02-19 11:30 | NUR ---
ALL DISCHARGE INSTRUCTIONS PROVIDED AT THIS TIME.PT EDUCATED TO F/U WITH DR. CLEARY IN 1 WEEK, NO HEAVY LIFTING AND THAT SHE MAY SHOWER;RX FOR PERCOCET 5 PROVIDED AND PT INSTRUCTED TO TAKE AD NEEDED/DIRECTED, PT VERBALIZES UNDERSTANDING AND DENIES ANY QUESTIONS AT THIS TIME;HOME MEDICATIONS (ZETIA,TRESIBA,AND VICTOZA) PROVIDED BACK TO PT FOR D/C; PT MEDICATED WITH SCHEDULED TORADOL IVP FOR ABDOMINAL PAIN RATING 3/10 ON THE PAIN SCALE.IV SITE REMOVED WITH CATHETER INTACT;PT DENIES ANY ADDITIONAL NEEDS;WHEELCHAIR TO BE PROVIDED FOR D/C HOME;SPOUSE TO TRANSPORT PT HOME;WILL CONTINUE TO MONITOR
--- NOTE | 2020-02-19 11:41 | NUR ---
Discharge instructions given. Patient verbalizes understanding of same. Discharged in stable condition via Wheelchair to Home with spouse. All belongings sent with pt. PT TRANSPORTED TO [facility] IN STABLE CONDITION VIA WHEELCHAIR ACCOMPANIED BY FRANCISCO JAVIER SHERWOOD. SPOUSE TO TRANSPORT TO HOME.
== END 2020-02-19 11:43 | disposition home or self-care (01) ==
LOC: ORM 08:31 → MS2 16:13 → ORM 16:52
PROVIDERS: ATTEND Surgery
PROC: 0WUF4JZ Supplement Abdominal Wall with Synthetic Substitute, Percutaneous Endoscopic Approach (ICD-10-PCS; principal; 2020-02-17)
DX: K43.0 Incisional hernia with obstruction, without gangrene (principal); R31.0 Gross hematuria; Z95.5 Presence of coronary angioplasty implant and graft; Z95.1 Presence of aortocoronary bypass graft; Z11.59 Encounter for screening for other viral diseases
CPT/HCPCS: J0131; J2710

== ENCOUNTER 2020-05-26 04:55 | Emergency (ER) | payer MEDICARE ==
[~2020-05-26] VITALS: Ht 152.4 cm; Wt 60.0 kg
[~2020-05-26 04:55] MED LIST changes: +PERCOCET 5/325M1 TAB PO
[2020-05-26] MEDS ORDERED: LANTUS100 UNIT/M SC (05:18)
[2020-05-26] MEDS ORDERED: SPIRIVA HANDIHALER IN (05:19)
[2020-05-26 05:50] LABS: HEMATOCRIT 48.6 % (37.0-47.0); HEMOGLOBIN 16.1 g/dl (12.0-16.0); IMMATURE GRANULOCYTES 0.6 % (0.0-5.0); MEAN CELL VOLUME 82.8 fL CALC (80.0-100.0); MEAN CORPUSCULAR HGB 27.4 pG CALC (26.0-32.0); MEAN CORPUSCULAR HGB CONC 33.1 g/dL CAL (32.0-36.0); NEUT# 6.14 thou/uL (2.00-7.15); RED BLOOD COUNT 5.87 mill/uL (4.20-5.60); RED CELL DISTRI WIDTH 13.2 % (11.5-15.5)
[2020-05-26 06:06] LABS: ALBUMIN 3.9 g/dL (3.2-5.0); ALKALINE PHOSPHATASE 94 u/l (38-126); AMYLASE 41 u/l (30-110); BILIRUBIN, TOTAL 0.4 mg/dL (0.0-1.4); BUN 16 mg/dL (8-23); BUN/CREATININE RATIO 20 (12-20 (CALC)); CHLORIDE 106 mmol/l (95-108); CREATININE 0.8 mg/dL (0.5-1.0); GFR > 60 ML/MIN (>=60 (CALC)); GFR FOR AFR.AMER. > 60 ML/MIN (>=60 (CALC)); LIPASE 185 u/l (23-300); POTASSIUM 4.3 mmol/l (3.5-5.1); SGOT/AST 18 u/l (9-36); SODIUM 137 mmol/l (137-146); TOTAL PROTEIN 6.8 g/dL (6.3-8.2)
[2020-05-26 06:17] LABS: ANION GAP 14 (6-22 (CALC)); CARBON DIOXIDE 21 mmol/l (22-30)
[2020-05-26 06:19] LABS: MYOGLOBIN 37 ng/mL (0 - 62)
[2020-05-26 06:33] LABS: PROTHROMBIN TIME 9.7 SECONDS (9.0-12.5)
[2020-05-26 06:50] VITALS: BP 145/81
== END 2020-05-26 07:38 | disposition expired ==
LOC: ED 04:55
PROVIDERS: Emergency Medicine
PROC: 0BH17EZ Insertion of Endotracheal Airway into Trachea, Via Natural or Artificial Opening (ICD-10-PCS; principal; 2020-05-26)
PROC: 5A12012 Performance of Cardiac Output, Single, Manual (ICD-10-PCS; 2020-05-26)
DX: I21.3 ST elevation (STEMI) myocardial infarction of unspecified site (principal); I25.10 Atherosclerotic heart disease of native coronary artery without angina pectoris; I10 Essential (primary) hypertension; J44.9 Chronic obstructive pulmonary disease, unspecified; I25.2 Old myocardial infarction; Z95.1 Presence of aortocoronary bypass graft; Z95.5 Presence of coronary angioplasty implant and graft; Z79.4 Long term (current) use of insulin; Z79.899 Other long term (current) drug therapy; Z20.828 Contact with and (suspected) exposure to other viral communicable diseases